=== PATIENT | male | born 1980 | race Two or more races ===

== ENCOUNTER 2020-08-24 15:08 | Outpatient (REF) | payer MEDICAID, SELFPAY ==
--- NOTE | 2020-08-24 | US_ITS ---
EXAMINATION: US RETROPERITONEAL LIMITED (RENAL ONLY) CLINICAL INFORMATION: Chronic kidney disease stage III. COMPARISON: Abdominal ultrasound dated 01/21/2013 TECHNIQUE: Real-time imaging of the kidneys. FINDINGS: RIGHT KIDNEY: 9.3 x 3.8 x 4.3 cm (SAG x AP x TRV). The kidney is normal in size, contour, and echogenicity. Renal cortical thickness is normal. No calculi or focal parenchymal lesions. No hydronephrosis. There is an extrarenal kidney pelvis with LEFT KIDNEY: 10.5 x 4.8 x 5.7 cm (SAG x AP x TRV). The kidney is normal in size, contour, and echogenicity. Renal cortical thickness is normal. No calculi or focal parenchymal lesions. No hydronephrosis. US/US renal BI IMPRESSION: Unremarkable renal ultrasound. Suspect extrarenal right kidney pelvis..
== END 2020-08-24 15:09 | disposition home or self-care (01) ==
LOC: HO.US 15:08
PROVIDERS: PCP Nurse Practitioner Family
DX: N18.30 Chronic kidney disease, stage 3 unspecified (principal); R79.89 Other specified abnormal findings of blood chemistry
CPT/HCPCS: 76775

== ENCOUNTER 2022-09-01 13:44 | Outpatient (AMB) | payer MEDICAID, SELFPAY ==
--- OUTSIDE RECORDS SUMMARY | 2022-09-01 13:45 | XMS_ITS | Continuity of Care Document ---
:1980 Author Organization [facility] Address [address] [place] [id number] Care Team Providers Name Role Phone Carmelo ALFORD, Juan Diego Lau Primary Care Physician Encounter [facility] Date(s): 10/14/19 - 10/14/[address] [address]- [facility] Attending Physician: MD Vikram, Magdi Lovett Allergies, Adverse Reactions, Alerts Substance Reaction Severity Status Fish rash Unknown Active Medications albuterol CFC free 90 mcg/inh inhalation aerosol 1 puffs, Inhalation, Every 6 hours, PRN for wheezing, Maintenance, Aerosol Start Date: 02/20/13 Status: OrderedAtripla oral tablet 1 tablet, By Mouth, Daily in AM, on an empty stomach, # 30 tablet, 0 Refills, Tablet Start Date: 12/05/09 Stop Date: 01/06/10 Status: Orderedclonazepam 0.5 mg oral tablet 1 tablet = 0.5 mg, By Mouth, 3 times a day, # 42 tablet, 1 Refills, Tablet Start Date: 12/04/09 Stop Date: 01/04/10 Status: OrderedMethadone = 80 mg, By Mouth, Daily, 0 Refills, Maintenance Start Date: 08/21/11 Status: Orderedomeprazole 20 mg oral delayed release tablet 1 tablet = 20 mg, By Mouth, 2 times a day, Maintenance, EC Tablet Start Date: 02/20/13 Status: Orderedquetiapine 300 mg oral tablet 1 tablet = 300 mg, By Mouth, 3 times a day, # 90 tablet, 0 Refills, Tablet Start Date: 12/04/09 Stop Date: 01/06/10 Status: Ordered Problem List Condition Effective Dates Status Health Status Informant Asthma(Confirmed) Active Headache(Confirmed) Active HIV - Human immunodeficiency virus Active infection(Confirmed) Intravenous drug user(Confirmed) Active Seizure(Confirmed) Active
--- NOTE | 2022-09-01 14:11 | A.OFFVIS_ITS ---
Intake Intake Visit Reasons: infertility consult Intake Note: patient here for infertility issues. Allergies SEAFOOD Allergy (Intermediate, Uncoded 07/09/23 21:15) ANGIOEDEMA Seafood Allergy (Unknown, Uncoded 07/09/23 21:15) Hives and Swelling HPI HPI Comments History of Present Illness Details Christofer is a pleasant male. He is seen for the following urologic conditions - male infertility Male fertility Has been attempting to get for number of years Long history of illicit drug use including daily recreational marijuana cigarettes Recommend reduction of marijuana three-month follow-up with office semen analysis Background HIV and hep C FORMERLY [facility], [facility] Medical History (Updated 12/14/23 @ 22:36 by Leroy Tolliver MD) Hepatitis C Chronic kidney disease HIV (human immunodeficiency virus infection) Review of Systems Const Denies chills and Denies fever(s) Card Reports no additional complaints and Denies syncope Resp Denies cough GI Denies abdominal pain and Denies heartburn Reports as per HPI and Denies change in libido Neuro Denies syncope Psych Denies change in libido Endo Denies change in libido Physical Exam Const General: cooperative, healthy appearing, comfortable and no acute distress Orientation/consciousness: patient oriented x3 HEENT Face and sinus: Yes normal facial exam Mouth: moist mucous membranes Neck Neck: Yes normal visual inspection, Yes full ROM and Yes trachea midline Chest Chest palpation & inspection: normal inspection of the chest Resp Effort & Inspection: normal respiratory effort, able to speak in complete sentences and no respiratory distress GI Inspection: Yes normal to inspection Back/Spine/Pelvis Cervical Spine: normal cervical lordosis Thoracic/Lumbar Spine: thoracic and lumbar spine normal to inspection Skin General skin exam: no rashes or lesions noted Neuro General: patient oriented x3, gait normal, tone normal and moves all extremities Extrem General: Yes normal to inspection and Yes capillary refill normal Assessment & Plan Assessment & Plan (1) Male infertility: Code(s): N46.9 - Male infertility, unspecified Plan 6 week follow-up in office sperm analysis Patient Instructions: Imaging studies, laboratory and physical exam results were discussed and reviewed in detail. No major barriers to patient understanding were identified. An opportunity to ask questions regarding the treatment plan was provided. All q uestions were answered. The patient expressed understanding and agreement with the above treatment plan. The patient is aware they should contact our office by phone for worsening of their current condition or the appearance of new urologic symptoms. Compliance is encouraged with any medications and followup testing that is ordered. It is a privilege to participate in the urologic care of your patient. If you have any questions or concerns regarding treatment for the above conditions, or other urologic issues, please do not hesitate to contact me. The office telephone contact is [phone]. This note is constructed using voice recognition software. While every effort has been made to ensure accuracy corrections lieutenant errors may have been included. Yours sincerely, Dr Leroy Tolliver MD, [facility] - Urology Providers of Expert, Compassionate Care for the Genitourinary System Coding Level of Care Code New Pt Level 3 (85372) Diagnoses Male infertility N46.9
== END 2022-09-01 14:57 | disposition home or self-care (01) ==
LOC: HO.HUSH 13:44
PROVIDERS: PCP Nurse Practitioner Family; Visit Provider Urology
DX: N46.9 Male infertility, unspecified (principal)
CPT/HCPCS: 99203; 99499

== ENCOUNTER → 2022-09-01 13:44 | Outpatient (BNVA) | payer MEDICAID, SELFPAY | PROVIDERS: PCP Nurse Practitioner Family; Visit Provider Urology | DX: N46.9 Male infertility, unspecified (principal) | CPT/HCPCS: 99202 ==

== ENCOUNTER 2023-05-28 15:50 | Outpatient (REF) | payer MEDICAID, SELFPAY ==
[2023-05-28 18:25] LABS: Anion Gap 17 (12-20); Blood Urea Nitrogen 10 mg/dL (9-16); Carbon Dioxide 22 mmol/L (22-29); Chloride 109 mmol/L (96-108); Estimated Glomerular Filt Rate 53; Glucose Random 51 mg/dL (60-115); Potassium 4.8 mmol/L (3.3-5.1); Sodium 143 mmol/L (135-145)
[2023-05-28 20:48] LABS: Appearance Urine Cloudy; Color Urine Orange; Glucose Urine UA Negative (Negative); Leukocyte Esterase Urine Small (1+) (Negative); Nitrite Urine Negative (Negative); PH 6.5 (5.0-9.0); Specific Gravity - Urine 1.025 (1.005-1.025); UMIC TRIGGER UACC YES; Urine Blood Large (3+) (Negative); Urine Ketones Negative (Negative); Urine Protein 30 (1+) mg/dL (Neg-Trace)
[2023-05-28 20:49] LABS: Bacteria Urine None Seen (None Seen); Hyaline Casts Urine 0-2 /LPF (0-2); RBC Urine >20 /HPF (0-2); Squamous Epithelial Cell Urine 0-2 /HPF (0-2); UACC Culture Trigger YES
== END 2023-05-28 15:51 | disposition home or self-care (01) ==
LOC: HO.HHCL 15:50
PROVIDERS: Visit Provider Family Medicine
DX: R31.0 Gross hematuria (principal)
CPT/HCPCS: 36415; 80048; 81001; 81003; 87086

== ENCOUNTER 2023-07-09 11:00 | Outpatient (AMB) | payer MEDICAID, SELFPAY ==
--- NOTE | 2023-07-09 11:10 | A.OFFVIS_ITS ---
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 Barron. , he has a past medical history of HIV, hep C, chronic kidney disease, and tobacco use. He presents to the office today as a new patient for gross hematuria. In discussion with the patient today reports to be doing and feeling well. He reports at the end of April noting one isolated incidence of gross hematuria. He reports noting earlier in the day prior to experiencing gross hematuria he had been at a marijuana festival at which time drank marijuana infused drinks as well as energy drinks. He reports having a previous history of heroin and cocaine abuse however has since been clean for over 10 years. However, he does report smoking recreational marijuana and cigarettes daily. He reports a smoking history for over 30 years. He reports to be smoking at least 1 pack of cigarettes daily. He otherwise denies any known chemical exposure. In office urinalysis results reviewed with the patient today. No microscopic hematuria noted. Discussed further microscopic hematuria workup with in office cystoscopy, CT urogram, and urine cytology. Discussed at length potential causes for gross hematuria. Patient otherwise denies any bothersome urinary issues or concerns. He denies urinary urgency, urinary frequency, incontinence, nocturia, hematuria, dysuria, foul smelling urine, changes to urinary stream, flank pain, fever, and or chills. He is happy with his current voiding parameters. [facility]LY [facility] Medical History (Updated 07/09/23 @ 21:25 by TAVIA Ross) Hepatitis C Chronic kidney disease HIV (human immunodeficiency virus infection) Review of Systems Const Reports as per HPI Eyes Reports no additional complaints ENT Reports no additional complaints Card Reports no additional complaints Resp Reports no additional complaints GI Reports as per [facility] Reports as per [facility] Musc Reports no additional complaints Neuro Reports no additional complaints Psych Reports as per [facility] Endo Reports no additional complaints Rojelio/Lymph Reports as per [facility] Aller/Immun Reports as per [facility] Physical Exam Const General: cooperative, comfortable, no acute distress, well developed, alert and awake Orientation/consciousness: patient oriented x3 Limitations: no limitations HEENT Head: Yes normal to inspection, Yes normocephalic and Yes atraumatic Ears: hearing grossly normal bilaterally Eyes General: appearance normal, both eyes and all related structures Neck Neck: Yes normal visual inspection and Yes trachea midline Chest Chest palpation & inspection: normal inspection of the chest Resp Effort & Inspection: normal respiratory effort and able to speak in complete sentences Cardio Rate: regular rate GI Inspection: Yes normal to inspection General: Yes no CVA tenderness Back/Spine/Pelvis Back: no CVA tenderness Skin General skin exam: no rashes or lesions noted Neuro General: patient oriented x3 Extrem General: Yes normal to inspection Psych Appearance: grossly normal and well kempt Mental Status: mental status grossly normal Speech and movement: Normal speech and movement present and Clear speech present Affect: normal affect Attitude: cooperative Thought process: Normal thought process present Thought content: Normal thought content present Insight: Fair insight present (Psych) Judgement: Fair judgement present (Psych) Results AMB Urinalysis, Automated UA Leukoctes 0 Pat/uL Last Edit by [place] on 07/09/23 11:23 UA Nitrite Last Edit by [place] on 07/09/23 11:23 UA Urobilinogen 0.2 mg/dL Last Edit by [place] on 07/09/23 11:23 UA Protein 15 mg/dL Last Edit by [place] on 07/09/23 11:23 UA pH 6.0 Last Edit by [place] on 07/09/23 11:23 UA Blood 0 Trent/uL Last Edit by [place] on 07/09/23 11:23 UA Specific [place] 1.025 Last Edit by [place] on 07/09/23 11:23 UA Ketone Last Edit by [place] on 07/09/23 11:23 UA Bilirubin 0 mg/dL Last Edit by Alon Navas on 07/09/23 11:23 UA Glucose 0 mg/dL Last Edit by Alon Navas on 07/09/23 11:23 Results Reviewed Results Reviewed: Laboratory Last Values Urine pH (Auto) 6.0 07/09/23 11:15 Specific [place] (Auto) 1.025 07/09/23 11:15 Urine Protein (Auto) 15 mg/dL 07/09/23 11:15 Glucose (UA)(Auto) 0 mg/dL 07/09/23 11:15 Urine Blood (Auto) 0 Trent/uL 07/09/23 11:15 Urine Bilirubin (Auto) 0 mg/dL 07/09/23 11:15 Urine Urobilinogen (Auto) 0.2 mg/dL 07/09/23 11:15 Leukocyte Esterase (Auto) 0 Pat/uL 07/09/23 11:15 Assessment & Plan Assessment & Plan (1) Gross hematuria: Code(s): R31.0 - Gross hematuria (2) Nicotine dependence: Code(s): F17.200 - Nicotine dependence, unspecified, uncomplicated Plan In office urinalysis results reviewed with the patient today; as noted above; will send for urine cytology. Discussed at length potential causes for gross hematuria. Will obtain CT urogram for further assessment evaluation. BUN creatinine ordered for imaging. Discussed at length importance of limiting/quitting cigarette smoking as well as recreational marijuana use for overall health and well-being. Discussed, educated, and stressed the importance of drinking plenty of water daily. Patient denies any bothersome urinary issues or concerns at this time he reports gross hematuria to have been 1 isolated incident. Follow-up in office cystoscopy in 4-6 weeks with imaging and labs to be completed prior; or sooner with any issues, concerns, and or questions. Orders: Orders CT urogram Today R31.0 - Gross hematuria Blood Urea Nitrogen Today R31.0 - Gross hematuria Urine Cytology Today R31.0 - Gross hematuria AMB Urinalysis Automated Today Z13.9 - Encounter for screening, unspecified Creatinine Today R31.0 - Gross hematuria Coding Level of Care Code New Pt Level 3 (39452) Diagnoses Gross hematuria R31.0 Nicotine dependence F17.200
== END 2023-07-09 12:07 | disposition home or self-care (01) ==
PROVIDERS: PCP Family Medicine; Visit Provider Nurse Practitioner Family
DX: R31.0 Gross hematuria (principal); F17.200 Nicotine dependence, unspecified, uncomplicated
CPT/HCPCS: 99203

== ENCOUNTER 2023-07-09 11:00 | Outpatient (REF) | payer MEDICAID, SELFPAY ==
[2023-07-09 16:55] LABS: Urine Cytology See Pathology rpt
== END 2023-07-09 11:01 | disposition home or self-care (01) ==
LOC: HO.LNP 11:00
PROVIDERS: PCP Family Medicine; Visit Provider Nurse Practitioner Family
DX: R31.0 Gross hematuria (principal); F17.200 Nicotine dependence, unspecified, uncomplicated
CPT/HCPCS: 81003; 88112; 99212

== ENCOUNTER 2023-10-24 16:17 | Outpatient (REF) | payer MEDICAID, SELFPAY ==
[2023-10-24 17:55] LABS: Blood Urea Nitrogen 12 mg/dL (9-16); Estimated Glomerular Filt Rate 59
== END 2023-10-24 16:18 | disposition home or self-care (01) ==
LOC: HO.HHCL 16:17
PROVIDERS: Visit Provider Emergency Medicine
DX: R31.0 Gross hematuria (principal); R31.9 Hematuria, unspecified
CPT/HCPCS: 36415; 82550; 82565; 84520; 87086

== ENCOUNTER 2023-12-06 10:45 | Outpatient (AMB) | payer MEDICAID, SELFPAY ==
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
== END 2023-12-06 11:37 | disposition home or self-care (01) ==
PROVIDERS: PCP Family Medicine; Visit Provider Urology
DX: N13.30 Unspecified hydronephrosis (principal); N20.1 Calculus of ureter; R31.0 Gross hematuria; F17.200 Nicotine dependence, unspecified, uncomplicated
CPT/HCPCS: 99204

== ENCOUNTER → 2023-12-06 10:45 | Outpatient (BNVA) | payer MEDICAID, SELFPAY | PROVIDERS: PCP Family Medicine; Visit Provider Urology | DX: N13.30 Unspecified hydronephrosis (principal); N20.1 Calculus of ureter; R31.0 Gross hematuria; F17.200 Nicotine dependence, unspecified, uncomplicated | CPT/HCPCS: 81003; 99202 ==

== ENCOUNTER 2023-12-21 12:47 | Outpatient (REF) | payer MEDICAID, SELFPAY ==
--- NOTE | ~2023-12-21 | US_ITS ---
EXAMINATION: US RETROPERITONEAL LIMITED (RENAL ONLY) CLINICAL INFORMATION: Unspecified hydronephrosis.. COMPARISON: Ultrasound kidneys 08/04/2020 TECHNIQUE: Routine retroperitoneal ultrasound of kidneys was performed. FINDINGS: RIGHT KIDNEY: 9.3 x 4.5 x 5.1 cm. cm (SAG x AP x TRV). The kidney is normal in size, contour, and echogenicity. Renal cortical thickness is normal. No calculi or focal parenchymal lesions. No hydronephrosis. Previously right kidney measures 9.3 x 3.8 x 4.3 cm. LEFT KIDNEY: 10.1 x 4.5 x 4.9 cm. cm (SAG x AP x TRV). The kidney is normal in size, contour, and echogenicity. Renal cortical thickness is normal. No calculi or focal parenchymal lesions. No hydronephrosis. Previously left kidney measured 10.5 x 4.8 x 5.7 cm. US/US retroperitoneal limited IMPRESSION: Unremarkable renal ultrasound.
== END 2023-12-21 12:48 | disposition home or self-care (01) ==
LOC: HO.US 12:47
PROVIDERS: PCP Nurse Practitioner Primary Care; Visit Provider Urology
DX: N20.1 Calculus of ureter (principal); N13.30 Unspecified hydronephrosis
CPT/HCPCS: 76775

== ENCOUNTER 2023-12-24 13:18 | Outpatient (REF) | payer MEDICAID, SELFPAY ==
--- NOTE | ~2023-12-24 | US_ITS ---
EXAMINATION: US PELVIS LIMITED (BLADDER) CLINICAL INFORMATION: Rescheduled bladder, empty 12/21/2023, hydronephrosis, left ureteral stone. Left kidney scanned 12/21/2023. COMPARISON: 12/21/2023 renal ultrasound. TECHNIQUE: Real-time imaging of the bladder. FINDINGS: BLADDER: Well-distended. Bilateral ureteral jets are demonstrated. Prevoid bladder volume is 184 mL. Postvoid bladder volume is 10 mL. Prostate volume 19 mL. US/US bladder IMPRESSION: Postvoid bladder volume 10 mL.
== END 2023-12-24 13:19 | disposition home or self-care (01) ==
LOC: HO.HMGCX 13:18
PROVIDERS: PCP Nurse Practitioner Primary Care; Visit Provider Urology
DX: N13.30 Unspecified hydronephrosis (principal); N20.1 Calculus of ureter
CPT/HCPCS: 76857

== ENCOUNTER 2023-12-25 06:55 | Day surgery (SDC) | payer MEDICAID, SELFPAY ==
--- NOTE | 2023-12-24 10:41 | HO.ANESPROP2 ---
Documented by User: Lenora Walter NP 12/24/23 10:41 HPI - Anesthesia Eval Consult details Narrative: 43yo M for Left Cystoscopy, Ureteroroscopy, Retro, Laser, left stent, possible bladder biopsy Methadone daily PMFSH Active Problems Active Problems: All Active Problems (Updated 12/21/23 @ 13:15 by Bonita Mckeon RN) Male infertility (Acute) Left ureteral stone (Acute) Hydronephrosis, left (Acute) Nicotine dependence (Acute) Gross hematuria (Acute) Past Medical History Medical History (Updated 12/25/23 @ 07:23 by Janell Gonzáles RN) Asthma HTN (hypertension) GERD (gastroesophageal reflux disease) Hepatitis C Chronic kidney disease HIV (human immunodeficiency virus infection) Surgical History Surgical History History of esophagogastroduodenoscopy (EGD) Social History Social History Patient Tobacco Use Status: Current everyday Tobacco user Tobacco use type: Cigarette Cigarettes Per Day: 13 Use of substances other than those prescribed or required for medical reasons: Yes Substance Use Frequency: Daily Are you DNR?: No Advance Directives: No Advance Directives Information Provided: Yes Meds Allergies Allergy/AdvReac Type Severity Reaction Status Date / Time seafood Allergy Intermediate hives/swell Verified 12/25/23 07:07 ing Home Medications Medication Instructions Recorded Confirmed Last Taken Type bictegravir 50 mg-emtricitabine 1 tab PO BEDTIME 09/01/22 12/25/23 Unknown History 200 mg-tenofovir alafenam 25 mg tablet (Biktarvy) clonazepam 0.5 mg tablet 0.5 mg PO BID PRN Anxiety 09/01/22 12/25/23 Unknown History fluoxetine 20 mg capsule 20 mg PO QAM 09/01/22 12/25/23 Unknown History clonidine HCl 0.1 mg tablet 0.1 mg PO BID 07/09/23 12/25/23 Unknown History esomeprazole magnesium 40 mg 40 mg PO QAM 07/09/23 12/25/23 Unknown History capsule,delayed release methadone 10 mg/mL oral concentrate 8 mg PO DAILY 12/21/23 12/25/23 Unknown History albuterol sulfate 90 mcg/actuation 2 puff inhalation Q4-6H PRN 12/25/23 12/25/23 Unknown History aerosol inhaler Shortness Of Breath Or Wheezing Assessment and Plan Assessment Anesthesia Assessment: Chart Reviewed Documented by User: Jason Ramsey MD 12/25/23 07:37 HPI - Anesthesia Eval Anesthesia Pre-Procedure Meds If Yes to any meds - educate patient: Pt education - possibility of cancelled proc at provider's discretion PMFSH Past Medical History Medical History (Updated 12/25/23 @ 07:23 by Janell Gonzáles RN) Asthma HTN (hypertension) GERD (gastroesophageal reflux disease) Hepatitis C Chronic kidney disease HIV (human immunodeficiency virus infection) Family History Family history of problems with anesthesia: No Surgical History Surgical History History of esophagogastroduodenoscopy (EGD) History of Problems with Anesthesia: No Social History Social History Patient Tobacco Use Status: Current everyday Tobacco user Tobacco use type: Cigarette Cigarettes Per Day: 13 Use of substances other than those prescribed or required for medical reasons: Yes Substance Use Frequency: Daily Are you DNR?: No Advance Directives: No Advance Directives Information Provided: Yes Meds Allergies Allergy/AdvReac Type Severity Reaction Status Date / Time seafood Allergy Intermediate hives/swell Verified 12/25/23 07:07 [facility] Home Medications Medication Instructions Recorded Confirmed Last Taken Type bictegravir 50 mg-emtricitabine 1 tab PO BEDTIME 09/01/22 12/25/23 Unknown History 200 mg-tenofovir alafenam 25 mg tablet (Biktarvy) clonazepam 0.5 mg tablet 0.5 mg PO BID PRN Anxiety 09/01/22 12/25/23 Unknown History fluoxetine 20 mg capsule 20 mg PO QAM 09/01/22 12/25/23 Unknown History clonidine HCl 0.1 mg tablet 0.1 mg PO BID 07/09/23 12/25/23 Unknown History esomeprazole magnesium 40 mg 40 mg PO QAM 07/09/23 12/25/23 Unknown History capsule,delayed release methadone 10 mg/mL oral concentrate 8 mg PO DAILY 12/21/23 12/25/23 Unknown History albuterol sulfate 90 mcg/actuation 2 puff inhalation Q4-6H PRN 12/25/23 12/25/23 Unknown History aerosol inhaler Shortness Of Breath Or Wheezing Exam Airway Mallampati Class: I TM Dist: >3cm Neck ROM: Full Loose/Missing/Broken Teeth: Yes and Upper Heart: ok Lungs: ok Assessment and Plan Assessment Anesthesia Assessment: Anesthesia Plan Discussed Final Anesthetic Review Family History of Problems with Anesthesia: No History of Problems with Anesthesia: No NPO: Yes ASA Class: III Final Preanesthetic Review: No Changes in Pt Med Stat, Meds/Allgs Chart Reviewed, Consent Obtained/Reviewed and Anes Risks/Benef Reviewed Patient Risk: Intermediate Procedure Risk: Low Anesthetic Plan Anesthetic Plan: GA and Agree w/ Assess. and Plan Disposition: Standard PACU
[2023-12-25 07:07] VITALS: BMI 27.5
[2023-12-25 07:34] VITALS: BP 128/97; PULSE 74; RESP 15; TEMP 36.7; O2SAT 99
[2023-12-25] MEDS: Lactated Ringers 1,000 ML 100 ML IVCONT (07:35)
--- NOTE | 2023-12-25 07:38 | MHC.SHP ---
Pre-Procedural Eval Section A - 24 Hr Update-Section A only Date of Service: 12/25/23 The patient is an INPATIENT: No The patient has been examined within 24 hours of the surgical procedure. The History & Physical has been completed within 30 days and I have reviewed it.: Yes Section B - Complete if H&P > 30 days Chief Complaint: Calculus of ureter Details of Present Illness: Christofer is being evaluated due to gross hematuria and CT scan finding of 4 mm right ureteral stone. FU imaging renal US on 12/21/23 and bladder US on 12/24/23 note no hydronephrosis, bladder bilateral ureteral jets, no calculi seen. Allergies: Allergies Allergy/AdvReac Type Severity Reaction Status Date / Time seafood Allergy Intermediate hives/swell Verified 12/25/23 07:07 ing Exam Surgical H&P Exam: Normal: Abdomen Exam Comment: No CVAT, no tenderness right lower quadrant Plan Diagnosis/Plan: Change I have reviewed the history and physical and performed a pertinent physical examination on my patient. No changes have occurred unless specified. Date of Service: 12/21/23 Procedure(s): US retroperitoneal limited Accession Number(s): [id number] cc: Li Palomino MD; HAROLDO FLOWER NP~ EXAMINATION: US RETROPERITONEAL LIMITED (RENAL ONLY) CLINICAL INFORMATION: Unspecified hydronephrosis.. COMPARISON: Ultrasound kidneys 08/04/2020 TECHNIQUE: Routine retroperitoneal ultrasound of kidneys was performed. FINDINGS: RIGHT KIDNEY: 9.3 x 4.5 x 5.1 cm. cm (SAG x AP x TRV). The kidney is normal in size, contour, and echogenicity. Renal cortical thickness is normal. No calculi or focal parenchymal lesions. No hydronephrosis. Previously right kidney measures 9.3 x 3.8 x 4.3 cm. LEFT KIDNEY: 10.1 x 4.5 x 4.9 cm. cm (SAG x AP x TRV). The kidney is normal in size, contour, and echogenicity. Renal cortical thickness is normal. No calculi or focal parenchymal lesions. No hydronephrosis. Previously left kidney measured 10.5 x 4.8 x 5.7 cm. Plan: Cystoscopy, possible bladder biopsy Time Spent With Patient Time: Total time managing care of this patient today ____ minutes.
--- NOTE | 2023-12-25 08:16 | W.PM.OPN ---
Operative Note Operative Note Date of Service: 12/25/23 Narrative: PREOP DIAGNOSIS: Gross hematuria POSTOP DIAGNOSIS: Gross hematuria PROCEDURE: CYSTOSCOPY SURGEON: Li Palomino MD ANESTHESIA: general Details of procedure: The patient was brought into the operating room placed on the OR table in supine position. 2 g of Ancef IV. General anesthesia was administered. The patient was repositioned into lithotomy position, prepped and draped in the usual sterile fashion. Time-out was done per protocol. 2% lidocaine jelly placed transurethrally. A 22 fr cystoscope was placed transurethrally into the bladder. The right and left ureteral orifices were visualized. There was brisk urine from both the right and left ureteral orifices. The entire bladder was visualized. There were no suspicious bladder lesions seen. The cystoscope was removed. 2% lidocaine urojet was passed transurethrally into the bladder. The patient was brought out of anesthesia and taken to recovery in stable condition. Complications: None Drains: None
[2023-12-25 08:25] VITALS: BP 133/89; PULSE 80; RESP 18; TEMP 36.2; O2SAT 96
[2023-12-25 08:30] VITALS: BP 138/87; PULSE 82; RESP 18; O2SAT 100
[2023-12-25 08:35] VITALS: BP 144/89; PULSE 68; RESP 16; O2SAT 100
[2023-12-25 08:40] VITALS: BP 137/91; PULSE 61; RESP 16; O2SAT 100
[2023-12-25 08:55] VITALS: BP 138/85; PULSE 64; RESP 16; TEMP 36.2; O2SAT 100
== END 2023-12-25 09:26 | disposition home or self-care (01) ==
PROVIDERS: PCP Nurse Practitioner Primary Care; Visit Provider Urology
PROC: (CPT 52000; principal; 2023-12-25 09:10)
DX: R31.0 Gross hematuria (principal); N20.1 Calculus of ureter; N13.30 Unspecified hydronephrosis; I12.9 Hypertensive chronic kidney disease with stage 1 through stage 4 chronic kidney disease, or unspecified chronic kidney disease; N18.9 Chronic kidney disease, unspecified; N46.9 Male infertility, unspecified; B19.20 Unspecified viral hepatitis C without hepatic coma; B20 Human immunodeficiency virus [HIV] disease; K21.9 Gastro-esophageal reflux disease without esophagitis; J45.909 Unspecified asthma, uncomplicated; F11.20 Opioid dependence, uncomplicated; F17.210 Nicotine dependence, cigarettes, uncomplicated; Z79.899 Other long term (current) drug therapy
CPT/HCPCS: 52000; C1769; J0690; J2250; J2405; J2704; J3010; Q9967

== ENCOUNTER → 2023-12-25 06:55 | Outpatient (BNV) | payer MEDICAID, SELFPAY | PROVIDERS: PCP Nurse Practitioner Primary Care; Visit Provider Urology | DX: R31.0 Gross hematuria (principal) | CPT/HCPCS: 52000 ==

== ENCOUNTER 2024-01-23 13:53 | Outpatient (REF) | payer MEDICAID, SELFPAY ==
[2024-01-23 16:56] LABS: Urine Cytology See Pathology rpt
== END 2024-01-23 13:54 | disposition home or self-care (01) ==
LOC: HO.LAB 13:53
PROVIDERS: PCP Nurse Practitioner Primary Care; Visit Provider Urology
DX: R31.29 Other microscopic hematuria (principal); R31.0 Gross hematuria; F17.200 Nicotine dependence, unspecified, uncomplicated
CPT/HCPCS: 81003; 88112; 99212

== ENCOUNTER 2024-01-23 13:53 | Outpatient (AMB) | payer MEDICAID, SELFPAY ==
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
== END 2024-01-23 14:58 | disposition home or self-care (01) ==
PROVIDERS: PCP Nurse Practitioner Primary Care; Visit Provider Urology
DX: R31.29 Other microscopic hematuria (principal); F17.200 Nicotine dependence, unspecified, uncomplicated; Z13.9 Encounter for screening, unspecified
CPT/HCPCS: 99214

== ENCOUNTER 2024-04-22 13:24 | Outpatient (AMB) | payer MEDICAID, SELFPAY ==
--- NOTE | 2024-04-22 13:35 | A.OFFVIS_ITS ---
Intake Visit Reasons: 3m/[employer] Intake Note: Patient presents for gross hematuria Urology Medications: none Blood Thinner: none Smoker: yes Telephone Assembler Required: No Accompanied by: Self / Same As Patient Allergies seafood Allergy (Intermediate, Verified 04/22/24 14:11) hives/swelling Medication List - Last Reconciled 04/22/24 by DANNY Ross- albuterol sulfate 90 mcg/actuation 2 puffs inhalation Q4-6H PRN avseolwlf-[id number]-[id number] ala 50-200-25 mg (Biktarvy) 1 tab PO BEDTIME clonazepam 0.5 mg PO BID PRN clonidine HCl 0.1 mg PO BID esomeprazole magnesium 40 mg PO QAM fluoxetine 20 mg PO QAM methadone 8 mg PO DAILY HPI Comments Details: Christofer is a very pleasant 44-year-old male patient of Dr. Barron. He has a past medical history of asthma, HIV, hep C, GERD, hypertension, chronic kidney disease, and tobacco use. He presents to the office today for follow-up of his gross hematuria and history of nephrolithiasis. In discussion with the patient today reports to be doing and feeling well. During last office visit recommendations were made for further metabolic workup due to history of nephrolithiasis however it appears 24 hour urine collection has not yet been resulted however patient does report dropping it off at the office late last week. Previous workup has included a cystoscopy outpatient under sedation 12/25/[address] Palomino that noted bladder mucosa within normal limits, bladder biopsy and retrogrades were not indicated at time of procedure. He currently denies any bothersome urinary issues or concerns. In office urinalysis results reviewed with the patient today. No microscopic hematuria noted. Previous workup has included retroperitoneal ultrasound noting bilateral kidneys with no hydronephrosis, lesions, and or renal calculi. The bladder is well distended. Bladder ureteral jets are demonstrated. Pre void bladder volume is approximately 185 mL. Postvoid bladder volume is approximately 10 mL. Prostate volume is 20 mL. Urine cytology 07/21 and 01/19 Negative for high-grade urothelial carcinoma. He denies urinary urgency, urinary frequency, incontinence, nocturia, hematuria, dysuria, foul smelling urine, changes to urinary stream, flank pain, fever, and or chills. He is happy with his current voiding parameters. Discussed at length potential causes of nephrolithiasis as well as gross hematuria patient had been experiencing. He denies having had any other episodes of hematuria. He otherwise offers no other issues or concerns at this time. [facility] Medical History Asthma HTN (hypertension) GERD (gastroesophageal reflux disease) Hepatitis C Chronic kidney disease HIV (human immunodeficiency virus infection) Surgical History History of esophagogastroduodenoscopy (EGD) Social History Patient Tobacco Use Status: Current everyday Tobacco user Tobacco use type: Cigarette Cigarettes Per Day: 13 Review of Systems Const Reports no additional complaints Eyes Reports no additional complaints ENT Reports no additional complaints Card Reports as per HPI Resp Reports as per HPI GI Reports as per HPI Reports as per HPI Musc Reports no additional complaints Neuro Reports no additional complaints Psych Reports no additional complaints Endo Reports no additional complaints Rojelio/Lymph Reports as per HPI Aller/Immun Reports no additional complaints Physical Exam Const General: cooperative, comfortable, no acute distress, well developed, alert and awake Orientation/consciousness: patient oriented x3 Limitations: no limitations HEENT Head: Yes normal to inspection, Yes normocephalic and Yes atraumatic Ears: hearing grossly normal bilaterally Eyes General: appearance normal, both eyes and all related structures Neck Neck: Yes normal visual inspection and Yes trachea midline Chest Chest palpation & inspection: normal inspection of the chest Resp Effort & Inspection: normal respiratory effort and able to speak in complete sentences Cardio Rate: regular rate GI Inspection: Yes normal to inspection General: Yes no CVA tenderness Back/Spine/Pelvis Back: no CVA tenderness Skin General skin exam: no rashes or lesions noted Neuro General: patient oriented x3 Extrem General: Yes normal to inspection Psych Appearance: grossly normal and well kempt Mental Status: mental status grossly normal Speech and movement: Normal speech and movement present and Clear speech present Affect: normal affect Attitude: cooperative Thought process: Normal thought process present Thought content: Normal thought content present Insight: Fair insight present (Psych) Judgement: Fair judgement present (Psych) Results AMB Urinalysis, Automated UA Leukoctes 0 Pat/uL Last Edit by Alon Navas on 04/22/24 14:06 UA Nitrite Negative Last Edit by Brandyce Bress on 04/22/24 14:06 UA Urobilinogen 0.2 mg/dL Last Edit by Brandyce Bress on 04/22/24 14:06 UA Protein 15 mg/dL Last Edit by Brandyce Bress on 04/22/24 14:06 UA pH 6.0 Last Edit by Brandyce Bress on 04/22/24 14:06 UA Blood 0 Trent/uL Last Edit by Brandyce Bress on 04/22/24 14:06 UA Specific [place] 1.020 Last Edit by Mojo Motorsyce Bress on 04/22/24 14:06 UA Ketone Negative Last Edit by Brandyce Bress on 04/22/24 14:06 UA Bilirubin 0 mg/dL Last Edit by Brandyce Bress on 04/22/24 14:06 UA Glucose 0 mg/dL Last Edit by Mojo Motorsyce Replisess on 04/22/24 14:06 Results Reviewed Results Reviewed: Laboratory Last Values Urine pH (Auto) 6.0 04/22/24 14:04 Specific [place] (Auto) 1.020 04/22/24 14:04 Urine Protein (Auto) 15 mg/dL 04/22/24 14:04 Glucose (UA)(Auto) 0 mg/dL 04/22/24 14:04 Urine Ketones (Auto) Negative 04/22/24 14:04 Urine Blood (Auto) 0 Trent/uL 04/22/24 14:04 Urine Nitrite (Auto) Negative 04/22/24 14:04 Urine Bilirubin (Auto) 0 mg/dL 04/22/24 14:04 Urine Urobilinogen (Auto) 0.2 mg/dL 04/22/24 14:04 Leukocyte Esterase (Auto) 0 Pat/uL 04/22/24 14:04 Assessment & Plan Assessment & Plan (1) Kidney stone: Code(s): N20.0 - Calculus of kidney Category: Medical (2) Microscopic hematuria: Code(s): R31.29 - Other microscopic hematuria Category: Medical (3) Nicotine dependence: Code(s): F17.200 - Nicotine dependence, unspecified, uncomplicated Category: Medical (4) Gross hematuria: Code(s): R31.0 - Gross hematuria Category: Medical Plan In office urinalysis results reviewed with the patient today; as noted above. 24 hour urine collection remains pending. Patient currently denies any bothersome urinary issues or concerns. He reports be happy with current voiding parameters. Discussed at length importance of limiting/quitting nicotine dependence for overall health and well-being. Discussed, educated, and stressed the importance of adequate hydration relation to nephrolithiasis as well as overall health and well-being. Will obtain renal ultrasound in 6 months. Discussed adding 1 oz of lemon juice to water daily. Previous urine cytology results reviewed with the patient today. Follow-up in 6 months with imaging to be completed prior; or sooner with any issues, concerns, and or questions. Orders: Orders AMB Urinalysis Automated Today Z13.9 - Encounter for screening, unspecified US renal BI 6 Months N20.0 - Calculus of kidney Patient Instructions: The patient had an opportunity to ask questions regarding the treatment plan. All questions were answered. Physical exam, labs, and imaging were discussed and reviewed in detail. As well as risks, benefits, and discussion of treatment choices. No major barriers to understanding were identified. The patient expressed understanding and agreement with the above treatment plan. The patient was made aware they should contact our office by phone for worsening of their current condition, the appearance of new symptoms, or with any questions or concerns. Compliance is encouraged with any medications and follow up testing that is ordered. It is a privilege to be allowed the opportunity to participate in? your urological care.? Again, if you have any questions or concerns If you have any questions or concerns please do not hesitate to contact me. The office is [phone]. This note is constructed using voice recognition software. While every effort has been made to ensure accuracy adjunct psychology faculty member errors may have been included. Yours sincerely, TAVIA Ross Coding Level of Care Code Est Pt Level 3 (65176) Diagnoses Kidney stone N20.0 Microscopic hematuria R31.29 Nicotine dependence F17.200 Gross hematuria R31.0
== END 2024-04-22 14:11 | disposition home or self-care (01) ==
PROVIDERS: PCP Nurse Practitioner Primary Care; Visit Provider Nurse Practitioner Family
DX: N20.0 Calculus of kidney (principal); R31.29 Other microscopic hematuria; F17.200 Nicotine dependence, unspecified, uncomplicated; R31.0 Gross hematuria; Z13.9 Encounter for screening, unspecified
CPT/HCPCS: 99213

== ENCOUNTER → 2024-04-22 13:24 | Outpatient (BNVA) | payer MEDICAID, SELFPAY | PROVIDERS: PCP Nurse Practitioner Primary Care; Visit Provider Nurse Practitioner Family | DX: R31.29 Other microscopic hematuria (principal); N20.0 Calculus of kidney; R31.0 Gross hematuria; F17.210 Nicotine dependence, cigarettes, uncomplicated | CPT/HCPCS: 81003; 99212 ==

== ENCOUNTER 2024-05-02 14:10 | Outpatient (REF) | payer MEDICAID, SELFPAY ==
[2024-05-02 15:56] LABS: MANUAL DIFF FLAG NO
[2024-05-02 16:11] LABS: Basophils Percent Auto 0.3 % (0-2); Eosinophils Absolute Auto 0.2 X10*3/uL (0.0-0.4); Eosinophils Percent Auto 1.9 % (0-4); Hematocrit 39.2 % (42.0-52.0); Hemoglobin 13.3 g/dl (14.0-18.0); Imm Gran Abs Auto 0.02 X10*3/uL (0.00-0.03); Imm Gran Pct Auto 0.3 % (0.0-0.4); Lymphocytes Absolute Auto 1.6 X10*3/uL (1.2-4.9); Lymphocytes Percent Auto 20.7 % (20-40); Mean Corpuscular HGB Conc 33.9 g/dl (31.0-36.0); Mean Corpuscular Hemoglobin 31.2 pg (27.0-33.0); Monocytes Absolute Auto 0.5 X10*3/uL (0.1-1.2); Monocytes Percent Auto 6.5 % (2-11); Neutrophils Absolute Auto 5.5 x10*3/uL (2.0-8.3); Neutrophils Percent Auto 70.3 % (45-73); Platelet Count 216 X10*3/uL (160-400); Red Blood Count 4.26 X10*6/uL (4.60-5.80); Red Cell Distribution Width 12.8 % (11.0-16.0); White Blood Count 7.8 X10*3/uL (4.8-10.8)
[2024-05-02 16:16] LABS: Cholesterol 200 mg/dL (<200); HDL Cholesterol 34 mg/dL (>40); LDL Cholesterol Calculated 120 mg/dL (<100); Triglycerides 230 mg/dL (<150)
[2024-05-02 16:17] LABS: Alanine Aminotransferase 15 U/L (0-40); Alkaline Phosphatase 68 U/L (39-117); Anion Gap 13 (12-20); Aspartate Amino Transferase 22 U/L (5-37); Bilirubin Total 0.3 mg/dL (0.0-1.0); Blood Urea Nitrogen 10 mg/dL (9-16); Calcium 9.7 mg/dL (8.4-10.2); Carbon Dioxide 26 mmol/L (22-29); Chloride 108 mmol/L (96-108); Estimated Glomerular Filt Rate 50; Glucose Random 86 mg/dL (60-115); Potassium 4.5 mmol/L (3.3-5.1); Sodium 142 mmol/L (135-145); Total Protein 7.3 g/dL (6.5-8.0)
[2024-05-02 16:49] LABS: Reflex LDLD? No
[2024-05-03 03:42] LABS: Syphilis Screen Nonreactive (Nonreactive)
[2024-05-03 03:51] LABS: HBS Num1 61.21 mIU/mL (0-7.99); HBc Num1 4.42 S/CO (0.00-0.79); HBsAGNum1 0.54 S/CO (0.00-0.99); Hepatitis B Surface Antigen Negative (Negative); ~Hepatitis B Surface Antibody REACTIVE (Nonreactive)
[2024-05-03 04:30] LABS: HBc Num3 4.52 S/CO; Hepatitis B Core Antibody Reactive (Nonreactive)
[2024-05-04 15:54] LABS: HIV RNA PCR Qn Copies 110 copies/mL (NOT DETECTED); HIV RNA PCR Qn Log Copies 2.04 (NOT DETECTED)
[2024-05-04 21:13] LABS: TS Negative Control Passed; TS Panel A 0; TS Panel B 0; TS Positive Control Passed; TSpotTB Negative (Negative)
[2024-05-05 22:24] LABS: Absolute CD3 Count 1119 cells/uL (840-3060); Absolute CD4 Count 402 cells/uL (490-1740); Absolute CD8 Count 725 cells/uL (180-1170); Absolute Lymphocytes 1672 cells/uL (850-3900); CD4 CD8 Ratio 0.55 (0.86-5.00); Percent CD3 Cells 67 % (57-85); Percent CD4 Cells 24 % (30-61); Percent CD8 Cells 43 % (12-42)
[2024-05-06 11:39] LABS: HCV Log PCR <1.18 NOT DETECTED Log IU/mL (NOT DETECTED); HepC Viral Load <15 NOT DETECTED IU/mL (NOT DETECTED)
== END 2024-05-02 14:11 | disposition home or self-care (01) ==
LOC: HO.HHCL 14:10
PROVIDERS: Nurse Practitioner Family; Student in an Organized Health Care Education/Training Program; Visit Provider Nurse Practitioner Primary Care
DX: B20 Human immunodeficiency virus [HIV] disease (principal); R31.0 Gross hematuria
CPT/HCPCS: 36415; 80053; 80061; 85025; 86359; 86360; 86481; 86704; 86706; 86780; 87340; 87522; 87536

== ENCOUNTER 2024-06-18 12:52 | Outpatient (REF) | payer MEDICAID, SELFPAY ==
[2024-06-18 17:16] LABS: Blood Urea Nitrogen 11 mg/dL (9-16); Estimated Glomerular Filt Rate 56
== END 2024-06-18 12:53 | disposition home or self-care (01) ==
LOC: HO.HHCL 12:52
PROVIDERS: Visit Provider Nurse Practitioner Family
DX: R31.0 Gross hematuria (principal)
CPT/HCPCS: 36415; 82565; 84520

== ENCOUNTER 2024-09-05 10:26 | Outpatient (REF) | payer MEDICAID, SELFPAY ==
[2024-09-05 13:16] LABS: MANUAL DIFF FLAG NO
[2024-09-05 13:22] LABS: Basophils Percent Auto 0.4 % (0-2); Eosinophils Absolute Auto 0.1 X10*3/uL (0.0-0.4); Eosinophils Percent Auto 2.5 % (0-4); Hematocrit 40.2 % (42.0-52.0); Hemoglobin 13.4 g/dl (14.0-18.0); Imm Gran Abs Auto 0.02 X10*3/uL (0.00-0.03); Imm Gran Pct Auto 0.4 % (0.0-0.4); Lymphocytes Absolute Auto 1.5 X10*3/uL (1.2-4.9); Lymphocytes Percent Auto 26.8 % (20-40); Mean Corpuscular HGB Conc 33.3 g/dl (31.0-36.0); Mean Corpuscular Hemoglobin 31.2 pg (27.0-33.0); Mean Corpuscular Volume 93.7 fL (80.0-98.0); Mean Platelet Volume 10.8 fL (9.4-12.4); Monocytes Absolute Auto 0.5 X10*3/uL (0.1-1.2); Monocytes Percent Auto 8.1 % (2-11); Neutrophils Absolute Auto 3.5 x10*3/uL (2.0-8.3); Neutrophils Percent Auto 61.8 % (45-73); Platelet Count 229 X10*3/uL (160-400); Red Blood Count 4.29 X10*6/uL (4.60-5.80); Red Cell Distribution Width 12.5 % (11.0-16.0); White Blood Count 5.6 X10*3/uL (4.8-10.8)
[2024-09-05 14:02] LABS: Alanine Aminotransferase 31 U/L (0-40); Albumin Level 3.9 g/dL (3.5-5.0); Alkaline Phosphatase 72 U/L (39-117); Anion Gap 11 (12-20); Aspartate Amino Transferase 31 U/L (5-37); Bilirubin Total 0.3 mg/dL (0.0-1.0); Blood Urea Nitrogen 12 mg/dL (9-16); Calcium 9.3 mg/dL (8.4-10.2); Carbon Dioxide 26 mmol/L (22-29); Chloride 110 mmol/L (96-108); Cholesterol 206 mg/dL (<200); Estimated Glomerular Filt Rate 52; Glucose Random 88 mg/dL (60-115); HDL Cholesterol 36 mg/dL (>40); Iron 52 mcg/dL (45-160); LDL Cholesterol Calculated 139 mg/dL (<100); Percent Iron Saturation 21 % (15-50); Potassium 4.3 mmol/L (3.3-5.1); Sodium 143 mmol/L (135-145); Total Iron Binding Capacity 248 mcg/dL (228-428); Total Protein 6.9 g/dL (6.5-8.0); Triglycerides 157 mg/dL (<150); Unsaturated Iron Binding 196 ug/dL
[2024-09-05 14:21] LABS: Folate 12.5 ng/mL (> or = 4.0); Vitamin B12 356 pg/mL (200-900)
[2024-09-05 14:24] LABS: Ferritin 61 ng/mL (20-250)
[2024-09-05 18:14] LABS: CT PCR NOT DETECTED (Not Detect.); NG PCR NOT DETECTED (Not Detect.)
[2024-09-08 18:49] LABS: Rubella IgG Antibody 2.34 Index
[2024-09-08 19:58] LABS: HIV RNA PCR Qn Copies 110 copies/mL (NOT DETECTED); HIV RNA PCR Qn Log Copies 2.04 (NOT DETECTED)
[2024-09-09 13:39] LABS: Hepatitis B Viral DNA Qn - cp NOT DETECTED Log IU/mL (NOT DETECTED); Hepatitis B Viral DNA Qn-IU/mL NOT DETECTED (NOT DETECTED)
== END 2024-09-05 10:27 | disposition home or self-care (01) ==
LOC: HO.HHCL 10:26
PROVIDERS: Visit Provider Student in an Organized Health Care Education/Training Program
DX: B20 Human immunodeficiency virus [HIV] disease (principal); E78.5 Hyperlipidemia, unspecified
CPT/HCPCS: 80053; 80061; 82607; 82728; 82746; 83540; 85025; 86735; 86762; 86765; 87491; 87517; 87536; 87591

== ENCOUNTER 2024-10-17 12:39 | Outpatient (REF) | payer MEDICAID, SELFPAY | END 2024-10-17 12:40 | disposition home or self-care (01) | LOC: HO.US 12:39 | PROVIDERS: PCP Nurse Practitioner Primary Care; Visit Provider Nurse Practitioner Family | DX: N20.0 Calculus of kidney (principal) | CPT/HCPCS: 76775 ==

== ENCOUNTER 2024-11-24 15:51 | Outpatient (AMB) | payer MEDICAID, SELFPAY ==
--- NOTE | 2024-11-24 15:51 | A.OFFVIS_ITS ---
Intake Visit Reasons: US follow up(set) Intake Note: Patient presents today for tele visit follow up on: kidney stone, litholink and ultrasound results * Imaging completed: 10/17/24 Urology Medications: none Blood Thinner: none Smoker: yes Roller Mechanic Required: No Accompanied by: Self / Same As Patient Allergies seafood Allergy (Intermediate, Verified 11/24/24 16:16) hives/swelling Medication List - Last Reconciled 11/24/24 by DANNY Ross- albuterol sulfate 90 mcg/actuation 2 puffs inhalation Q4-6H PRN lkhkxgutz-ytpuxarv-ahtngnj ala 50-200-25 mg (Biktarvy) 1 tab PO BEDTIME clonazepam 0.5 mg PO BID PRN clonidine HCl 0.1 mg PO BID esomeprazole magnesium 40 mg PO QAM fluoxetine 20 mg PO QAM methadone 8 mg PO DAILY HPI Comments Details: Christofer is a very pleasant 44-year-old male patient of Dr. Barron. He has a past medical history of asthma, HIV, hep C, GERD, hypertension, chronic kidney disease, and tobacco use. He is being followed up on today via video telehealth for his history of hematuria as well as nephrolithiasis. In discussion with the patient today he reports to be doing and feeling well. He discusses episodes of urinary frequency last week however these have since resolved. Recent renal imaging results reviewed with the patient today. Bilateral kidneys with no hydronephrosis and or renal calculi. Patient with a longstanding history of microscopic hematuria in the setting of nicotine dependence he has undergone cystoscopy under sedation 12/25/[address]Archer- Vargas that noted bladder mucosa within normal limits, bladder biopsy and retrogrades were not indicated at time of procedure. He currently denies any bothersome urinary issues or concerns. Urine cytology 07/21 and 01/19 Negative for high-grade urothelial carcinoma. He denies urinary urgency, urinary frequency, incontinence, nocturia, hematuria, dysuria, foul smelling urine, changes to urinary stream, flank pain, fever, and or chills. He is happy with his current voiding parameters. He does continue to report nicotine dependence however has significantly decreased. He reports smoking 2-3 cigarettes per day compared to the pack per day he had been smoking. He otherwise offers no other issues or concerns at this time. [facility] Medical History Asthma HTN (hypertension) GERD (gastroesophageal reflux disease) Hepatitis C Chronic kidney disease HIV (human immunodeficiency virus infection) Surgical History History of esophagogastroduodenoscopy (EGD) Social History Patient Tobacco Use Status: Current everyday Tobacco user Tobacco use type: Cigarette Cigarettes Per Day: 13 Review of Systems Const Reports no additional complaints Eyes Reports no additional complaints ENT Reports no additional complaints Card Reports as per HPI Resp Reports as per HPI GI Reports as per HPI Reports as per HPI Musc Reports no additional complaints Neuro Reports no additional complaints Psych Reports no additional complaints Endo Reports no additional complaints Rojelio/Lymph Reports as per HPI Aller/Immun Reports no additional complaints Physical Exam Const General: cooperative, healthy appearing, comfortable, no acute distress, well developed, alert and awake Orientation/consciousness: patient oriented x3 Resp Effort & Inspection: normal respiratory effort and able to speak in complete sentences Neuro General: patient oriented x3 Psych Appearance: grossly normal and well kempt Speech and movement: Clear speech present Affect: normal affect Attitude: cooperative Thought content: Normal thought content present Insight: Fair insight present (Psych) Judgement: Fair judgement present (Psych) Telehealth Telehealth Telehealth Platform: [employer] Location of provider rendering services: practice address Location of patient: address on file Patient Identification confirmed using: Name, : Yes Telehealth method: video Patient verbally consented to treatment: Yes Patient verbally consented to billing insurance company: Yes Patient informed of any privacy concerns related to visit: Yes Minutes spent on Phone/Video with Pt.: 15 Results Reviewed Results Reviewed: Date of Service: 10/17/24 Procedure(s): US renal BI FINDINGS: RIGHT KIDNEY: 9.4 x 5.6 x 5.4 cm (SAG x AP x TRV). No hydronephrosis. No renal calculi. Renal cortical thickness is normal. Limited visualization. LEFT KIDNEY: 9.8 x 5.3 x 4.6 cm (SAG x AP x TRV). No hydronephrosis. No renal calculi. Renal cortical thickness is normal. Limited visualization. IMPRESSION: No hydronephrosis. No renal calculi. Assessment & Plan Assessment & Plan (1) Kidney stone: Code(s): N20.0 - Calculus of kidney Category: Medical (2) Microscopic hematuria: Code(s): R31.29 - Other microscopic hematuria Category: Medical (3) Nicotine dependence: Code(s): F17.200 - Nicotine dependence, unspecified, uncomplicated Category: Medical (4) Gross hematuria: Code(s): R31.0 - Gross hematuria Category: Medical Plan Recent renal ultrasound results reviewed with the patient today; as noted above. He currently denies any bothersome urinary issues or concerns. Discussed at length importance of limiting/quitting nicotine dependence for overall health and well-being. Discussed, educated, and stressed the importance of adequate hydration relation to nephrolithiasis as well as overall health and well-being. Will obtain renal ultrasound in 1 year. Continue adding 1 oz of lemon juice to water daily. Follow-up in 1 year with imaging to be completed prior; or sooner with any issues, concerns, and or questions. Orders: Orders US renal BI 1 Year N20.0 - Calculus of kidney Patient Instructions: The patient had an opportunity to ask questions regarding the treatment plan. All questions were answered. Physical exam, labs, and imaging were discussed and reviewed in detail. As well as risks, benefits, and discussion of treatment choices. No major barriers to understanding were identified. The patient expressed understanding and agreement with the above treatment plan. The patient was made aware they should contact our office by phone for worsening of their current condition, the appearance of new symptoms, or with any questions or concerns. Compliance is encouraged with any medications and follow up testing that is ordered. It is a privilege to be allowed the opportunity to participate in? your urological care.? Again, if you have any questions or concerns If you have any questions or concerns please do not hesitate to contact me. The office is [phone]. This note is constructed using voice recognition software. While every effort has been made to ensure accuracy machine shorthand reporter errors may have been included. Yours sincerely, Brittanie Marquez, [employer] OPERATIONS SUPERVISOR-BC Coding Level of Care Code Tele Est Pt Level 3 (88161) Diagnoses Kidney stone N20.0 Microscopic hematuria R31.29 Nicotine dependence F17.200 Gross hematuria R31.0
--- OUTSIDE RECORDS SUMMARY | 2024-11-24 19:39 | XMS_ITS | Clinical Summary ---
Author Organization [facility]. Address [address] [place] [address] Phone Care Team Providers Care Big Data Lead Name Role Phone Unavailable Primary Care Provider Unavailabl e Allergies No known active allergies Medications albuterol HFA (PROVENTIL HFA;VENTOLIN HFA) 108 (90 Base) MCG/ACT inhaler Inhale 02/20/2013 Active METHADONE HCL PO Take 80 mg by mouth 1 (one) time each day liquid 08/21/2011 Active esomeprazole (NexIUM) [address] capsule TAKE 1 CAPSULE BY MOUTH TWICE DAILY IN THE MORNING AND IN THE EVENING 06/28/2023 Active cloNIDine (CATAPRES) 0.1 MG tablet Take 0.1 mg by mouth every morning and evening 07/25/2023 Active clonazePAM (KlonoPIN) 0.5 MG tablet TAKE 1 TABLET BY MOUTH EVERY TWELVE HOURS NEEDED FOR ANXIETY 06/04/2023 Active Biktarvy 50-200-25 MG tablet Take 1 tablet by mouth at bed time 07/25/2023 Active famotidine (PEPCID) 20 MG tablet Take 20 mg by mouth at night if needed 07/24/2023 Active FLUoxetine (PROzac) 40 MG capsule Take 40 mg by mouth 06/26/2023 Active lisinopril 5 MG tablet Take 5 mg by mouth 07/24/2023 Active amLODIPine (NORVASC) 10 MG tablet Take 1 tablet (10 mg total) by mouth 1 (one) time each day 90 tablet 3 02/01/2024 5 Active Active Problems Problem Noted Date Diagnosed Date Gross hematuria 08/03/2023 Chronic kidney disease, stage 2 (mild) 3 Asthma 08/02/2023 08/02/2023 Headache 08/02/2023 08/02/2023 Human immunodeficiency virus infection 3 08/02/2023 Intravenous drug user 08/02/2023 08/02/2023 Seizure 08/02/2023 08/02/2023 Social History Tobacco Use Types Packs/Day Years Used Date Smoking Tobacco: Never Assessed Sex and Gender Information Value Date Recorded Sex Assigned at Not on file Legal Sex Male 5:04 PM EST Gender Identity Not on file Sexual Orientation Not on file Last Filed Vital Signs Vital Sign Reading Time Taken Comments Blood Pressure 118/80 02/01/2024 8:51 AM EDT Pulse 64 02/01/2024 8:51 AM EDT Temperature - - Respiratory Rate - - Oxygen Saturation 98% 02/01/2024 8:51 AM EDT Inhaled Oxygen Concentration - - Weight 78 kg (172 lb) 02/01/2024 8:51 AM EDT Height 172.7 cm (5' 8 ) 08/03/2023 9:24 AM EDT Body Mass Index 26.15 08/03/2023 9:24 AM EDT Plan of Treatment Health Maintenance Due Date Last Done Comments Hepatitis B Vaccine (1 of 3 - 19+ 3-dose series) 02/22/2000 06/02/2022 Influenza Vaccine (#1) 2024 2, 10/18/2021, 08/21/2019, Additional history exists Pneumococcal Vaccine: Pediat rics (0 to 5 Years) and At-Risk Patients (6 to 64 Years) (4 of 4 - PPSV23 or PCV20) 2046 07/20/2016, 07/27/2011, 08/03/2006 Insurance [place]ID [id number]
--- OUTSIDE RECORDS SUMMARY | 2024-11-24 19:39 | XMS_ITS | Clinical Summary ---
[facility] Organization [facility] Address [address] [place] [address] Care Team Providers Care Metal Framer Name Role Phone Unavailable Primary Care Provider Unavailabl e Social History Tobacco Use Types Packs/Day Years Used Date Smoking Tobacco: Never Assessed Sex and Gender Information Value Date Recorded Sex Assigned at Not on file Gender Identity Not on file Sexual Orientation Not on file Plan of Treatment Health Maintenance Due Date Last Done Comments DTaP,Tdap,and Td Vaccines (1 - Tdap) 02/22/2000 Hepatitis B Vaccines (1 of 3 - 19+ 3-dose series) 02/22/2000 Cholesterol Screening (Lipid Panel) 09/26/2022 Depression Screening 09/26/2022 HIV Screening 09/26/2022 Hepatitis C Screening 09/26/2022 Social Influencers of Health Screening 09/26/2022 COVID-19 Vaccine (2023-2 5 season) 2024 Influenza Vaccine (#1) 2024 HIB Vaccines Aged Out No longer eligi ble based on patient's age to complete this topic HPV Vaccines Aged Out No longer eligi ble based on patient's age to complete this topic Hepatitis A Vaccines Aged Out No long er eligible based on patient's age to complete this topic IPV Vaccines Aged Out No longer eligi ble based on patient's age to complete this topic MMR Vaccines Aged Out No longer eligi ble based on patient's age to complete this topic Meningococcal ACWY Vaccine Aged Out N o longer eligible based on patient's age to complete this topic Pneumococcal Vaccine: Pediat rics (0 to 5 Years) and At-Risk Patients (6 to 64 Years) Aged Out No longer eligible b ased on patient's age to complete this topic RSV Immunization Patients Un nkechi 20 months Aged Out No longer eligible b ased on patient's age to complete this topic Varicella Vaccines Aged Out No longer eligible based on patient's age to complete this topic
== END 2024-11-24 16:42 | disposition home or self-care (01) ==
LOC: HO.HUSH 15:51
PROVIDERS: PCP Nurse Practitioner Primary Care; Visit Provider Nurse Practitioner Family
DX: N20.0 Calculus of kidney (principal); R31.29 Other microscopic hematuria; F17.200 Nicotine dependence, unspecified, uncomplicated; R31.0 Gross hematuria
CPT/HCPCS: 99213

== ENCOUNTER 2024-12-26 14:13 | Outpatient (REF) | payer MEDICAID, SELFPAY ==
[2024-12-26 16:11] LABS: MANUAL DIFF FLAG NO
[2024-12-26 16:22] LABS: Basophils Percent Auto 0.4 % (0-2); Eosinophils Absolute Auto 0.1 X10*3/uL (0.0-0.4); Eosinophils Percent Auto 1.8 % (0-4); Hemoglobin 13.5 g/dl (14.0-18.0); Imm Gran Abs Auto 0.02 X10*3/uL (0.00-0.03); Imm Gran Pct Auto 0.4 % (0.0-0.4); Lymphocytes Absolute Auto 1.7 X10*3/uL (1.2-4.9); Lymphocytes Percent Auto 29.6 % (20-40); Mean Corpuscular HGB Conc 33.8 g/dl (31.0-36.0); Mean Corpuscular Hemoglobin 31.6 pg (27.0-33.0); Mean Corpuscular Volume 93.7 fL (80.0-98.0); Monocytes Absolute Auto 0.3 X10*3/uL (0.1-1.2); Monocytes Percent Auto 5.5 % (2-11); Neutrophils Absolute Auto 3.5 x10*3/uL (2.0-8.3); Neutrophils Percent Auto 62.3 % (45-73); Platelet Count 197 X10*3/uL (160-400); Red Blood Count 4.27 X10*6/uL (4.60-5.80); Red Cell Distribution Width 12.3 % (11.0-16.0); White Blood Count 5.7 X10*3/uL (4.8-10.8)
--- OUTSIDE RECORDS SUMMARY | 2024-12-26 16:25 | XMS_ITS | Clinical Summary ---
Author Organization [facility]. Address [address] [place] [address] Phone Care Team Providers Care Merchandise Flow Team Member Name Role Phone Unavailable Primary Care Provider [...] PCV20) 2046 07/20/2016, 07/27/2011, 08/03/2006 [place]
--- OUTSIDE RECORDS SUMMARY | 2024-12-26 16:25 | XMS_ITS | Clinical Summary ---
Author Organization [facility] it Address [address] [place] [address] Care Team Providers Care Division Sales Manager Name Role Phone Unavailable Primary Care Provider Unavailabl e Social History Tobacco Use Types Packs/Day Years Used Date Smoking Tobacco: Never Assessed Sex and Gender Information Value Date Recorded Sex Assigned at Not on file Legal Sex Male 1:06 PM EST Gender Identity Not on file [...] patient's age to complete this topic Meningococcal B Vacine Aged Out No lo nger eligible based on patient's age to complete [...]
[2024-12-26 16:33] LABS: Alanine Aminotransferase 19 U/L (0-40); Albumin Level 4.1 g/dL (3.5-5.0); Alkaline Phosphatase 64 U/L (39-117); Anion Gap 10 (12-20); Aspartate Amino Transferase 30 U/L (5-37); Bilirubin Total 0.4 mg/dL (0.0-1.0); Blood Urea Nitrogen 13 mg/dL (9-16); Calcium 9.2 mg/dL (8.4-10.2); Carbon Dioxide 26 mmol/L (22-29); Chloride 110 mmol/L (96-108); Estimated Glomerular Filt Rate 58; Glucose Random 97 mg/dL (60-115); Potassium 4.6 mmol/L (3.3-5.1); Sodium 141 mmol/L (135-145); Total Protein 7.4 g/dL (6.5-8.0)
[2024-12-29 12:53] LABS: HIV RNA PCR Qn Copies 29 copies/mL (NOT DETECTED); HIV RNA PCR Qn Log Copies 1.46 (NOT DETECTED)
[2024-12-31 16:49] LABS: Absolute CD3 Count 1026 cells/uL (840-3060); Absolute CD4 Count 410 cells/uL (490-1740); Absolute CD8 Count 610 cells/uL (180-1170); Absolute Lymphocytes 1479 cells/uL (850-3900); CD4 CD8 Ratio 0.67 (0.86-5.00); Percent CD3 Cells 69 % (57-85); Percent CD4 Cells 28 % (30-61); Percent CD8 Cells 41 % (12-42)
[2025-01-05 00:18] LABS: HIV 1 Integrase Proviral DNA DETECTED; HIV 1 PR RT Proviral DNA DETECTED
== END 2024-12-26 14:14 | disposition home or self-care (01) ==
LOC: HO.HHCL 14:13
PROVIDERS: Student in an Organized Health Care Education/Training Program; Visit Provider Internal Medicine
DX: Z21 Asymptomatic human immunodeficiency virus [HIV] infection status (principal)
CPT/HCPCS: 36415; 80053; 85025; 86359; 86360; 87536; 87900; 87901; 87906

== ENCOUNTER 2025-01-09 09:22 | Outpatient (REF) | payer MEDICAID, SELFPAY ==
--- OUTSIDE RECORDS SUMMARY | 2025-01-09 10:16 | XMS_ITS | Clinical Summary ---
Author Organization [facility]. Address [address] [place] [address] Phone Care Team Providers Care Trust Operations Assistant Name Role Phone Unavailable Primary Care Provider [...] PCV20) 2046 07/20/2016, 07/27/2011, 08/03/2006 [place]
--- OUTSIDE RECORDS SUMMARY | 2025-01-09 10:16 | XMS_ITS | Clinical Summary ---
Author Organization [facility] it Address [address] [place] [address] Care Team Providers Care Chemical Processing Technician Name Role Phone Unavailable Primary Care Provider [...]
[2025-01-09 12:23] LABS: Creatinine Urine 246.28 mg/dL; Microalbum/Creatinine Ratio Ur 4.4 ug/mg cr (<30)
== END 2025-01-09 09:23 | disposition home or self-care (01) ==
LOC: HO.HHCL 09:22
PROVIDERS: Visit Provider Nurse Practitioner Primary Care
DX: I10 Essential (primary) hypertension (principal)
CPT/HCPCS: 82043; 82570

== ENCOUNTER 2025-04-06 16:14 | Outpatient (REF) | payer MEDICAID, SELFPAY ==
--- OUTSIDE RECORDS SUMMARY | 2025-04-06 17:42 | XMS_ITS | Clinical Summary ---
Author Organization [facility] ity Address [address] [place] [address] Care Team Providers Care Certified Fraud Examiner Name Role Phone Unavailable Primary Care Provider [...] Vaccine (2023-2 5 season) 2024 Influenza Vaccine (Season Ended) 2025 HIB Vaccines Aged Out No longer eligi [...] age to complete this topic Meningococcal B Vaccine Aged Out No l onger eligible based on patient's age to complete [...]
== END 2025-04-06 16:15 | disposition home or self-care (01) ==
LOC: HO.HHCLNP 16:14
PROVIDERS: Visit Provider Student in an Organized Health Care Education/Training Program
DX: Z21 Asymptomatic human immunodeficiency virus [HIV] infection status (principal)
CPT/HCPCS: 88112

== ENCOUNTER 2025-06-18 09:30 | Outpatient (REF) | payer MEDICAID, SELFPAY ==
--- OUTSIDE RECORDS SUMMARY | 2025-06-18 10:42 | XMS_ITS | Clinical Summary ---
Author Organization [facility] it Address [address] [place] [address] Care Team Providers Care Accounts Payable Technician Name Role Phone Unavailable Primary Care [...] series) 02/22/2000 Cholesterol Screening (Lipid Panel) 09/26/2022 HIV Screening 09/26/2022 Hepatitis C Screening 09/26/2022 Social Influencers of Health Screening 09/26/2022 COVID-19 Vaccine (1 - 2023-2 5 season) 2024 Depression Screening 10/29/2024 Influenza Vaccine (#1) 2025 HIB Vaccines Aged Out No longer [...] 5 Years) and At-Risk Patients (6 to 49 Years) Aged Out No longer eligible b ased on patient's age to complete this topic RSV Immunization Patients Un nkechi 20 months Aged Out No longer eligible b ased on patient's age to complete this topic Varicella Vaccines Aged Out No longer eligible based on patient's age to complete this topic
--- OUTSIDE RECORDS SUMMARY | 2025-06-18 10:42 | XMS_ITS | Clinical Summary ---
Author Organization [facility] Address [address] [place] [address] Phone Care Team Providers Care Straddle Bug Driver Name Role Phone Unavailable Primary Care Provider [...] time each day 90 tablet 3 02/01/2024 Active Active Problems Problem Noted Date Diagnosed [...] 3-dose series) 02/22/2000 06/02/2022 Influenza Vaccine (#1) 2025 2, 10/18/2021, 08/21/2019, Additional history exists Pneumococcal Vaccine: Peds ( 0 to 5 Years) and At-Risk Patients (6 to 49 Years) (4 of 4 - PCV20 or PCV21) 2031 07/20/2016, 07/27/2011, 08/03/2006 Pneumococcal Vaccine: 50+ Years Discontinued 07/20/2016, 07/27/2011, 08/03/2006 Insurance Medicaid [place]
[2025-06-18 11:25] LABS: MANUAL DIFF FLAG NO
[2025-06-18 11:42] LABS: Hematocrit 41.1 % (42.0-52.0); Hemoglobin 14.0 g/dl (14.0-18.0); Imm Gran Abs Auto 0.03 X10*3/uL (0.00-0.03); Imm Gran Pct Auto 0.4 % (0.0-0.4); Lymphocytes Absolute Auto 1.7 X10*3/uL (1.2-4.9); Mean Corpuscular HGB Conc 34.1 g/dl (31.0-36.0); Mean Corpuscular Hemoglobin 31.8 pg (27.0-33.0); Mean Corpuscular Volume 93.4 fL (80.0-98.0); NRBC Abs Auto 0.000 X10*3/uL (0.0-0.012); NRBC Pct Auto 0.0 /100WBC (0.0-0.2); Platelet Count 208 X10*3/uL (160-400); Red Blood Count 4.40 X10*6/uL (4.60-5.80); White Blood Count 7.0 X10*3/uL (4.8-10.8)
[2025-06-18 11:48] LABS: Hemoglobin A1C 120.3501 umol/L; Total Hemoglobin (HGBA1C) 3661.7874 umol/L
[2025-06-18 12:06] LABS: Alanine Aminotransferase 25 U/L (0-40); Albumin Level 4.3 g/dL (3.5-5.0); Alkaline Phosphatase 88 U/L (39-117); Anion Gap 11 (12-20); Aspartate Amino Transferase 40 U/L (5-37); Blood Urea Nitrogen 22 mg/dL (9-16); Calcium 9.5 mg/dL (8.4-10.2); Carbon Dioxide 25 mmol/L (22-29); Chloride 111 mmol/L (96-108); Cholesterol 238 mg/dL (<200); Estimated Glomerular Filt Rate 40; HDL Cholesterol 34 mg/dL (>40); Potassium 4.3 mmol/L (3.3-5.1); Sodium 143 mmol/L (135-145); Total Protein 7.1 g/dL (6.5-8.0); Triglycerides 248 mg/dL (<150)
[2025-06-18 13:44] LABS: HBsAGNum1 0.42 S/CO (0.00-0.99); Hepatitis B Surface Antigen Negative (Negative); ~HepC Num1 12.03 S/CO (0.00-0.79); ~Hepatitis C Antibody Reactive (Nonreactive)
[2025-06-18 14:04] LABS: Reflex LDLD? No
[2025-06-19 13:49] LABS: HIV RNA PCR Qn Copies 74 copies/mL (NOT DETECTED); HIV RNA PCR Qn Log Copies 1.87 (NOT DETECTED)
[2025-06-21 08:33] LABS: TS Negative Control Passed; TS Panel A 0; TS Panel B 1; TS Positive Control Passed; TSpotTB Negative (Negative)
[2025-06-22 15:14] LABS: HCV Log PCR <1.18 NOT DETECTED Log IU/mL (NOT DETECTED); HepC Viral Load <15 NOT DETECTED IU/mL (NOT DETECTED)
[2025-06-23 13:32] LABS: Absolute CD3 Count 1184 cells/uL (840-3060); Absolute CD8 Count 741 cells/uL (180-1170); Percent CD3 Cells 72 % (57-85); Percent CD8 Cells 45 % (12-42)
== END 2025-06-18 09:31 | disposition home or self-care (01) ==
LOC: HO.HHCL 09:30
PROVIDERS: PCP Nurse Practitioner Primary Care; Visit Provider Student in an Organized Health Care Education/Training Program
DX: Z11.3 Encounter for screening for infections with a predominantly sexual mode of transmission (principal); Z11.59 Encounter for screening for other viral diseases; Z21 Asymptomatic human immunodeficiency virus [HIV] infection status; Z01.84 Encounter for antibody response examination
CPT/HCPCS: 36415; 80053; 80061; 82248; 83036; 85025; 86359; 86360; 86481; 86592; 86777; 86778; 86787; 86803; 87340; 87522; 87536

== ENCOUNTER 2025-09-28 12:15 | Outpatient (REF) | payer MEDICAID, SELFPAY ==
[2025-09-28 13:13] LABS: MANUAL DIFF FLAG NO
[2025-09-28 13:40] LABS: Hematocrit 42.3 % (42.0-52.0); Hemoglobin 14.1 g/dl (14.0-18.0); Imm Gran Abs Auto 0.03 X10*3/uL (0.00-0.03); Imm Gran Pct Auto 0.4 % (0.0-0.4); Lymphocytes Absolute Auto 1.6 X10*3/uL (1.2-4.9); Mean Corpuscular HGB Conc 33.3 g/dl (31.0-36.0); Mean Corpuscular Hemoglobin 31.7 pg (27.0-33.0); Mean Corpuscular Volume 95.1 fL (80.0-98.0); NRBC Abs Auto 0.000 X10*3/uL (0.0-0.012); NRBC Pct Auto 0.0 /100WBC (0.0-0.2); Platelet Count 231 X10*3/uL (160-400); Red Blood Count 4.45 X10*6/uL (4.60-5.80); White Blood Count 8.2 X10*3/uL (4.8-10.8)
[2025-09-28 13:58] LABS: Alanine Aminotransferase 39 U/L (0-40); Albumin Level 4.4 g/dL (3.5-5.0); Alkaline Phosphatase 91 U/L (39-117); Anion Gap 11 (12-20); Aspartate Amino Transferase 34 U/L (5-37); Blood Urea Nitrogen 17 mg/dL (9-16); Calcium 9.6 mg/dL (8.4-10.2); Carbon Dioxide 27 mmol/L (22-29); Chloride 110 mmol/L (96-108); Cholesterol 213 mg/dL (<200); Estimated Glomerular Filt Rate 50; HDL Cholesterol 35 mg/dL (>40); Potassium 4.8 mmol/L (3.3-5.1); Sodium 143 mmol/L (135-145); Total Protein 7.4 g/dL (6.5-8.0); Triglycerides 203 mg/dL (<150)
[2025-09-28 14:21] LABS: Reflex LDLD? No
--- OUTSIDE RECORDS SUMMARY | 2025-09-28 15:59 | XMS_ITS | Clinical Summary ---
Author Organization [facility] Address [address] [facility] [address] [place] [address] Phone Care Team Providers Care Energy Efficiency Engineer Name Role Phone Jerrica Barger NP Primary Care Provider [phone] Allergies Active Allergy Reactions Criticality Noted Date Comments Fish Allergy 12/29/2022 Other reaction(s): rash Shellfish Allergy 11/07/2022 Medications albuterol HFA (PROVENTIL HFA;VENTOLIN HFA) 108 [...] mouth every morning and evening 07/25/2023 Active Biktarvy 50-200-25 MG tablet Take 1 [...] each day 90 tablet 3 02/01/2024 Active Cholecalciferol (Vitamin D3) 50 MCG (2000 UT) tabletIndicatio ns:Vitamin D deficiency, not otherwise specified Take 2,000 Units by mouth 1 (one) time each day 30 tablet 11 08/12/2025 6 Active Active Problems Problem Noted Date Diagnosed Date Vitamin D deficiency, not otherwise specified Stage 3b chronic kidney disease 07/08/2025 Gross hematuria 08/03/2023 Chronic kidney disease, stage 2 (mild) 3 Asthma 08/02/2023 08/02/2023 Headache 08/02/2023 08/02/2023 Human immunodeficiency virus infection 3 08/02/2023 Intravenous drug user 08/02/2023 08/02/2023 Seizure 08/02/2023 08/02/2023 Mood disorder 11/07/2022 Overview (07/08/2025): Last Assessment & Plan: Clonidine has been effective for anxiety. He will continue at bedtime or BID. Also continue Fluoxetine 40 mg daily. May also continue Clonazepam 0.5 mg BID prn. He previously became suicidal when taking Seroquel and there is no indication for antipsychotic medication at this time. Continue with therapist. Today 07/17/2023 provider informed the patient that I would be retiring within the year, and suggested he discss with his therapist the option of transferring to agency psychiatrist. F/U 2 months. He agrees with the plan. 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 [address] [place] [phone] Yvrose Valle ARNP Stage 3b chronic kidney disease (HCC) (Primary Dx); Hypertension; Vitamin D deficiency, not otherwise specified 07/08/2025 4:00 PM EDT Office Visit [facility] [address] [address] Anthony Paz MD Hypertension (Primary Dx); Stage 3b chronic kidney disease (HCC) from Last 3 Months Immunizations Immunization Administration Dates Next Due Hepatitis B 06/02/2022 Influenza Split 08/28/2013,07/05/2012 Influenza, Quadrivalent, Pre servative Free 07/21/2022,10/18/2021,08/21/2019,07/18,01/20/2016 Influenza, Quadrivalent, Wit h Preservative 07/25/2018,07/19/2017,07/20/2016 [place] SARS-COV-2 01/24/2021 Meningococcal MCV4P 11/15/2017,07/19/2017 Pneumococcal Conjugate 13-Valent 07/20/2016 Pneumococcal Polysaccharide 07/27/2011, 6 Td 08/26/2009 Tdap 11/23/2016 Family History Relation Status Comments Father Mother Social History Tobacco Use Types Packs/Day Years Used Date Smoking Tobacco: Every Day Cigarettes Smokeless Tobacco: Current Tobacco Cessation:Ready to Q uit: Not Asked; Counseling Given: Not Answered Alcohol Use Standard Drinks/Week Comments Never 0 (1 standard drink = 0.6 oz pur e alcohol) Sex and Gender Information Value Date Recorded Sex Assigned at Not on file Legal Sex Male 5:04 PM EST Gender Identity Not on file Sexual Orientation Not on file Last Filed Vital Signs Vital Sign Reading Time Taken Comments Blood Pressure 118/70 08/12/2025 2:39 PM EDT Pulse 62 08/12/2025 2:14 PM EDT Temperature - - Respiratory Rate - - Oxygen Saturation 98% 07/08/2025 4:16 PM EDT Inhaled Oxygen Concentration - - Weight 80.3 kg (177 lb) 08/12/2025 2:14 PM EDT Height 172.7 cm (5' 8 ) 08/03/2023 9:24 AM EDT Body Mass Index 26.91 08/03/2023 9:24 AM EDT Plan of Treatment Upcoming Encounters Date Type Department Care Team (Late st Contact Info) Description 02/10/2026 10:45 AM EDT Office Visit [facility] [address] [facility] [address] [place] [address] Yvrose Valle ARNP [address] [facility] [address] [place] [address] Health Maintenance Due Date Last Done Comments Hepatitis B Vaccine (1 of 3 - 19+ 3-dose series) 02/22/2000 06/02/2022 Influenza Vaccine (#1) 2025 2, 10/18/2021, 08/21/2019, Additional history exists Pneumococcal Vaccine: Peds ( 0 to 5 Years) and At-Risk Patients (6 to 49 Years) (4 of 4 - PCV20 or PCV21) 2031 07/20/2016, 07/27/2011, 08/03/2006 Pneumococcal Vaccine: 50+ Years Discontinued 07/20/2016, 07/27/2011, 08/03/2006 Procedures Procedure Name Priority Date/Time Associated Diagnosis Comments C4 COMPLEMENT Routine 07/27/2025 1:06 PM EDT Hypertension Stage 3b chronic kidney disease (HCC) C3 COMPLEMENT Routine 07/27/2025 1:06 PM EDT Hypertension Stage 3b chronic kidney disease (HCC) LITZY PANEL Routine 07/27/2025 1:06 PM EDT Hypertension Stage 3b chronic kidney disease (HCC) HEPATITIS B CORE ANTIBODY, IGM Routine 07/27/2025 1:06 PM EDT Hypertension Stage 3b chronic kidney disease (HCC) HEPATITIS C ANTIBODY Routine 07/27/2025 1:06 PM EDT Hypertension Stage 3b chronic kidney disease (HCC) HEPATITIS B SURFACE ANTIGEN Routine 07/27/2025 1:06 PM EDT Hypertension Stage 3b chronic kidney disease (HCC) HEPATITIS B SURFACE ANTIBODY QUANT Routine 07/27/2025 1:06 PM EDT Hypertension Stage 3b chronic kidney disease (HCC) KAPPA/LAMBDA FREE LT CHAINS W/RATIO Routine 07/27/2025 1:06 PM EDT Hypertension Stage 3b chronic kidney disease (HCC) PROTEIN ELECTROPHORESIS, SERUM Routine 07/27/2025 1:06 PM EDT Hypertension Stage 3b chronic kidney disease (HCC) MAGNESIUM Routine 07/27/2025 1:06 PM EDT Hypertension Stage 3b chronic kidney disease (HCC) CBC Routine 07/27/2025 1:06 PM EDT Hypertension Stage 3b chronic kidney disease (HCC) VITAMIN D 25 HYDROXY Routine 07/27/2025 1:06 PM EDT Hypertension Stage 3b chronic kidney disease (HCC) PROTEIN / CREATININE RATIO, URINE Routine 07/27/2025 1:06 PM EDT Hypertension Stage 3b chronic kidney disease (HCC) URINE ALBUMIN / CREATININE RATIO Routine 07/27/2025 1:06 PM EDT Hypertension Stage 3b chronic kidney disease (HCC) URINALYSIS WITH MICROSCOPIC Routine 07/27/2025 1:06 PM EDT Hypertension Stage 3b chronic kidney disease (HCC) RENAL FUNCTION PANEL Routine 07/27/2025 1:06 PM EDT Hypertension Stage 3b chronic kidney disease (HCC) PTH, INTACT Routine 07/27/2025 1:06 PM EDT Hypertension Stage 3b chronic kidney disease (HCC) MICROSCOPIC EXAMINATION - DO NOT USE Routine 07/27/2025 1:06 PM EDT from Last 3 Months Results * Microscopic Examination (07/27/2025 1:06 PM EDT) WBC, Urine None seen 0 - 5 /hpf [facility] RBC, Urine 0-2 0 - 2 /hpf [facility] Squamous Epithelial, Urine None seen 0 - 10 /hpf [facility] Casts None seen None seen /lpf [facility] Bacteria, Urine None seen None seen/Few [facility] 07/27/2025 1:06 PM EDT 07/27/2025 Anthony Paz MD LAB MICROBIOLOGY - GENERAL OR DERABLES Final Result [facility] [address] [place] [address] * (ABNORMAL) Hepatitis C antibody (07/27/2025 1:06 PM EDT) Hep C Virus Ab Reactive( A) Non Reactive [facility] [place] Comment: HCV antibody alone does not differentiate between previously resolved infection and active infection. Equivocal and Reactive HCV antibody results should be followed up with an HCV RNA test to support the diagnosis of active HCV infection. Blood Venous blood / Unknown 07/27/2025 1:06 PM EDT 07/27/2025 Anthony Paz MD LAB BLOOD ORDERABLES Final Re sult [facility] [place] [address], [address] [place] [address] * Protein, Total, Random Urine w/Creatinine (Protein/Creat Ratio) (07/27/2025 1:06 PM EDT) Creatinine, Ur 154.7 Not Estab. mg/dL [facility] Protein, Ur 10.7 Not Estab. mg/dL [facility] Urine Protein/Creatin ine Ratio 69 0 - 200 mg/g creat [facility] Urine Urine specimen obtained by clean catch procedure / Unknown 07/27/2025 1:06 PM EDT 07/27/2025 Anthony Paz MD LAB URINE ORDERABLES Final Re sult Performing Organization Address [facility] Co de Phone Number [facility] [address] [place] [address] * (ABNORMAL) Mazie/Lambda free LT chains w/ratio, Serum (07/27/2025 1:06 PM EDT) Free Mazie Lt Chains, S 25.9(H) 3.3 - 19.4 mg/L [facility] Free Lambda Lt Chains, S 16.2 5.7 - 26.3 mg/L [facility] Free Mazie/Lambda Ratio 1.60 0.26 - 1.65 [facility] Blood Venous blood / Unknown 07/27/2025 1:06 PM EDT 07/27/2025 Anthony Paz MD LAB BLOOD ORDERABLES Final Re sult Performing Organization Address [facility] Co de Phone Number [facility] [address] [place] [address] * Urine Albumin / Creatinine Ratio (07/27/2025 1:06 PM EDT) Albumin, Urine 8.4 Not Estab. ug/mL [facility] Albumin/Creatin ine Ratio 5 0 - 29 mg/g creat [facility] Comment: Normal: 0 - 29 Moderately increased: 30 - 300 Severely increased: >300 Urine Urine specimen obtained by clean catch procedure / Unknown 07/27/2025 1:06 PM EDT 07/27/2025 Anthony Paz MD LAB URINE ORDERABLES Final Re sult [facility] [address] [place] [address] * Hepatitis B core antibody, IgM (07/27/2025 1:06 PM EDT) Hep B Core IgM Negative Negative [facility] [place] Blood Venous blood / Unknown 07/27/2025 1:06 PM EDT 07/27/2025 Anthony Paz MD LAB BLOOD ORDERABLES Final Re sult [facility] [address], [address] [place] [address] * (ABNORMAL) Vitamin D 25 Hydroxy (07/27/2025 1:06 PM EDT) Vitamin D, 25-OH, Total 20.1(L) 30.0 - 100.0 ng/mL [facility] Comment: Vitamin D deficiency has been defined by the [place] of Medicine and an Endocrine Society practice guideline as a level of serum 25-OH vitamin D less than 20 ng/mL (1,2). The Endocrine Society went on to further define vitamin D insufficiency as a level between 21 and 29 ng/mL (2). 1. IOM ([place] of Medicine). 2010. Dietary reference intakes for calcium and D. [place]: The National Academies Press. 2. Maria Ines MF, Rosa Isela NC, Jovon SILVER, et al. Evaluation, treatment, and prevention of vitamin D deficiency: an Endocrine Society clinical practice guideline. JCEM. 2010; 96(7):1911-30. Blood Venous blood / Unknown 07/27/2025 1:06 PM EDT 07/27/2025 Anthony Paz MD LAB BLOOD ORDERABLES Final Re sult [facility] [address] [place] [address] * Hepatitis B Surface Antibody (07/27/2025 1:06 PM EDT) Pathologist [facility] Hepatitis B Surface Ab 93.6 Immunity>1 0 mIU/mL [facility] [place] Comment: Status of Immunity Anti-HBs Level Inconsistent with Immunity 0.0 - 10.0 Consistent with Immunity >10.0 Blood Venous blood / Unknown 07/27/2025 1:06 PM EDT 07/27/2025 Anthony Paz MD LAB BLOOD ORDERABLES Final Re sult Performing Organization Address [facility]/ZIP Co de Phone Number [facility] [place] [address], [address] [place] [address] * Hepatitis B Surface Antigen (07/27/2025 1:06 PM EDT) Pathologist [facility] Hep B Surface Ag Negative Negative [facility] Blood Venous blood / Unknown 07/27/2025 1:06 PM EDT 07/27/2025 Anthony Paz MD LAB BLOOD ORDERABLES Final Re sult [facility] [place] [address], [address] [place] [address] * Urinalysis with microscopic (07/27/2025 1:06 PM EDT) Pathologist [facility] Specific [place], Urine 1.024 1.005 - 1.030 [facility] pH Urine 7.0 5.0 - 7.5 [facility] Color, Urine Yellow Yellow [facility] Appearance Urine Clear Clear [facility] WBC Esterase Urine Negative Negative [facility] Protein, Ur Trace Negative/Tra ce [facility] Glucose, Ur Negative Negative [facility] Ketones, Urine Negative Negative [facility] Blood Urine Negative Negative [facility] Bilirubin Urine Negative Negative [facility] Urobilinogen Urine 0.2 0.2 - 1.0 mg/dL [facility] Nitrite, Urine Negative Negative [facility] Microscopic Examination Comment [facility] Comment:Microscopic follows if indicated. Other Microsc. Observations See below: [facility] Comment:Microscopic was jose cated and was performed. Urine Urine specimen obtained by clean catch procedure / Unknown 07/27/2025 1:06 PM EDT 07/27/2025 us Anthony Paz MD LAB URINE ORDERABLES Final Re sult [facility] [address] [place] [address] * CBC (07/27/2025 1:06 PM EDT) WBC 5.8 3.4 - 10.8 x10E3/uL [facility] RBC 4.26 4.14 - 5.80 x10E6/uL [facility] Hemoglobin 13.5 13.0 - 17.7 g/dL [facility] Hematocrit 40.6 37.5 - 51.0 % [facility] MCV 95 79 - 97 fL [facility] MCH 31.7 26.6 - 33.0 pg [facility] MCHC 33.3 31.5 - 35.7 g/dL [facility] RDW 12.3 11.6 - 15.4 % [facility] Platelets 206 150 - 450 x10E3/uL [facility] Blood Venous blood / Unknown 07/27/2025 1:06 PM EDT 07/27/2025 Anthony Paz MD LAB BLOOD ORDERABLES Final Re sult [facility] [address] [place] [address] * C3 Complement (07/27/2025 1:06 PM EDT) C3 Complement 165 82 - 167 mg/dL [facility] Blood Venous blood / Unknown 07/27/2025 1:06 PM EDT 07/27/2025 Anthony Paz MD LAB BLOOD ORDERABLES Final Re sult [facility] [address] [place] [address] * C4 Complement (07/27/2025 1:06 PM EDT) C4 Complement 20 12 - 38 mg/dL [facility] Blood Venous blood / Unknown 07/27/2025 1:06 PM EDT 07/27/2025 nAthony Paz MD LAB BLOOD ORDERABLES Final Re sult [facility] [address] [place] [address] * LITZY Panel (07/27/2025 1:06 PM EDT) Pathologist [facility] LITZY Negative Negative [facility] Blood Venous blood / Unknown 07/27/2025 1:06 PM EDT 07/27/2025 Anthony Paz MD LAB BLOOD ORDERABLES Final Re sult Performing Organization Address City/[facility]/ZIP Co de Phone Number [facility] [address] [place] [address] * Protein electrophoresis, serum (07/27/2025 1:06 PM EDT) Pathologist [facility] Total Protein 6.7 6.0 - 8.5 g/dL [facility] Albumin 3.7 2.9 - 4.4 g/dL [facility] [phone] Afinb-1-Knwurtdu 0.2 0.0 - 0.4 g/dL [facility] Xrbug-7-Wlnigvta 0.7 0.4 - 1.0 g/dL [facility] [phone] Beta Globulin 1.0 0.7 - 1.3 g/dL [facility] Gamma Globulin in Serum 1.1 0.4 - 1.8 g/dL [facility] M-Matti Serum Not Observed Not Observed g/dL [facility] Globulin, Total 3.0 2.2 - 3.9 g/dL [facility] A/G Ratio 1.2 0.7 - 1.7 [facility] Please note Comment [facility] [phone] Comment: Protein electrophoresis scan will follow via computer, mail, or desk representative delivery. PDF . [facility] Blood Venous blood / Unknown 07/27/2025 1:06 PM EDT 07/27/2025 Anthony Paz MD LAB BLOOD ORDERABLES Final Re sult [facility] [address] [place] [address] * PTH, Intact (07/27/2025 1:06 PM EDT) PTH 46 15 - 65 pg/mL [facility] Blood Venous blood / Unknown 07/27/2025 1:06 PM EDT 07/27/2025 Anthony Paz MD LAB BLOOD ORDERABLES Final Re sult Performing Organization Address [facility]/ZIP Co de Phone Number [facility] [address] [place] [address] * Magnesium (07/27/2025 1:06 PM EDT) Magnesium 1.7 1.6 - 2.3 mg/dL [facility] Blood Venous blood / Unknown 07/27/2025 1:06 PM EDT 07/27/2025 Anthony Paz MD LAB BLOOD ORDERABLES Final Re sult Performing Organization Address City/[facility]/ZIP Co de Phone Number [facility] [address] [place] [address] * Renal Function Panel (07/27/2025 1:06 PM EDT) Glucose 80 70 - 99 mg/dL [facility] BUN 14 6 - 24 mg/dL [facility] Creatinine 1.26 0.76 - 1.27 mg/dL [facility] eGFR CKD-EPI CR 2020 72 >59 mL/min/1.7 3 [facility] BUN/Creatinine Ratio 11 9 - 20 [facility] Sodium 140 134 - 144 mmol/L [facility] Potassium 4.6 3.5 - 5.2 mmol/L [facility] Chloride 103 96 - 106 mmol/L [facility] Bicarbonate (CO2) 22 20 - 29 mmol/L [facility] Calcium 9.4 8.7 - 10.2 mg/dL [facility] Phosphorus 3.6 2.8 - 4.1 mg/dL [facility] Albumin 4.2 4.1 - 5.1 g/dL [facility] Blood Venous blood / Unknown 07/27/2025 1:06 PM EDT 07/27/2025 us Anthony Paz MD LAB BLOOD ORDERABLES Final Re sult [facility] [address] [place] [address] from Last 3 Months Insurance [place] Care Teams Energy Efficiency Engineer Relationship Specialty Start Date End Date Jerrica Barger NP [address] [place] [address] PCP - General Nurse Practitioner 06/22/25
--- OUTSIDE RECORDS SUMMARY | 2025-09-28 15:59 | XMS_ITS | Clinical Summary ---
Author Organization [facility] ity Address [address] [place] [address] Care Team Providers Care Chief Deputy Coroner Name Role Phone Unavailable Primary Care Provider [...] of 3 - 19+ 3-dose series) 02/22/2000 HPV Vaccines (1 - 3-dose SCD M series) 02/22/2008 Cholesterol Screening (Lipid Panel) 09/26/2022 HIV Screening 09/26/2022 Hepatitis C Screening 09/26/2022 Social Influencers of Health Screening 09/26/2022 Depression Screening 10/29/2024 COVID-19 Vaccine (1 - 2024-2 6 season) 2025 Influenza Vaccine (#1) 2025 RSV Immunization Adult Patie nts (1 - 1-dose 75+ series) 02/22/2056 HIB Vaccines Aged Out No longer eligi [...]
[2025-09-28 17:45] LABS: CT PCR Urine NOT DETECTED (Not Detect.); NG PCR Urine NOT DETECTED (Not Detect.)
[2025-09-29 21:54] LABS: C. Trachomatis RNA TMA, Throat NOT DETECTED (NOT DETECTED); N. gonorrhoeae RNA TMA, Throat NOT DETECTED (NOT DETECTED)
[2025-09-30 14:28] LABS: HIV RNA PCR Qn Copies NOT DETECTED copies/mL (NOT DETECTED); HIV RNA PCR Qn Log Copies NOT DETECTED (NOT DETECTED)
== END 2025-09-28 12:16 | disposition home or self-care (01) ==
LOC: HO.HHCL 12:15
PROVIDERS: PCP Student in an Organized Health Care Education/Training Program; Visit Provider Student in an Organized Health Care Education/Training Program
DX: Z20.2 Contact with and (suspected) exposure to infections with a predominantly sexual mode of transmission (principal); Z21 Asymptomatic human immunodeficiency virus [HIV] infection status
CPT/HCPCS: 36415; 80053; 80061; 85025; 87491; 87536; 87591